=== PATIENT | male | born 1980 | race Caucasian/White ===

== ENCOUNTER 2021-11-16 15:34 | Emergency (ER) | payer BC, SELFPAY ==
[2021-11-16 15:38] VITALS: BP 169/102; PULSE 88; RESP 18; TEMP 36.2; O2SAT 99
[2021-11-16 15:58] VITALS: BP 177/66
[2021-11-16 18:04] VITALS: BP 180/99; PULSE 60; TEMP 36.3; O2SAT 100
--- NOTE | 2021-11-16 18:55 | ED.GENADUL_ITS ---
Discharge Plan Disposition Patient Disposition: HOME Condition: Stable Discharge Details Clinical Impression: Exposure to body fluid Primary Care Provider: Shanique Elliott ED Provider: Diana Molina Home Meds and New Rx's Prescriptions: No Action No Known Home Meds Discharge Instructions Instructions: Rabies Vaccine (By injection), Rabies Immune Globulin (By injection), Rabies (ED) Additional Instructions: You were given the rabies immunoglobulin and Day #0 of the rabies vaccine here in the emergency department today. Follow-up at the infusion center for day 3 on 11/19, day 7 on 11/23 and day 14 on 11/30 for the remainder of your rabies vaccine series. You can likely discontinue the rabies vaccine series if the rabies vaccine testing for the Delgado is negative for rabies. Follow-up with your primary care doctor in 1 week. Return to the emergency department with any worsening or new concerning symptoms. Discharge Data Discharge Date/Time-TO BE ENTERED AT DEPARTURE: 11/16/21 20:26 Discharge Physician: Diana Molina Medical Decision Making 41-year-old presents for concern for potential exposure to rabies. His dog may have had contact with an injured cough in his backyard. Patient states he had his dog who may have had saliva on him and then patient rubbed his own left eye 3 days ago. [employer] collected delgado but rabies testing still pending. Dog is vaccinated for rabies and has been acting appropriately. Patient has been asymptomatic. Discussed with patient at length regarding potential exposure to rabies and he would like to proceed with rabies immunoglobulin. Case discussed with pharmacy on-call who states that patient is still within the window to receive the immunoglobulin and vaccine. Immunoglobulin and day 0 vaccine ordered. Form completed for completion of vaccine at day 3 on 11/19, day 7 on 11/23 and day 14 on 11/30 for remainder of series to be completed at the infusion center. Patient informed that if the delgado rabies test is negative, pt can likely stop the rabies vaccine series. Advised to follow up with the primary care doctor for re-evaluation. Usual and customary return precautions given prior to discharge. Medical Records Medical records reviewed: Yes I reviewed the patient's medical records. HPI General Mode of arrival: ambulatory . Date/Time Provider Initiated Documentation: 11/16/21 15:47 . Limitations to Documentation: no limitations . Information obtained by: patient . HPI Narrative: Patient is a 41-year-old male who presents with concern for potential exposure to rabies. Patient states he recently put his dog who potentially had saliva on him and then patient rubbed his left eye 3 days ago. He states around this time he found an injury to proximal outside in his backyard and was concerned the dog may have had contact with the delgado. Patient states he is concerned that he may have had saliva from the delgado on the dog and then rubbed his eye. Patient states the dog is vaccinated for rabies and has been acting appropriately. Patient denies any symptoms. Patient states he is concerned as he is 72 hours out from exposure and is concerned about when he can receive the rabies immunoglobulin and vaccine if indicated. He states the [employer] dual rate supervisor was able to procure the Delgado for testing but this result is still pending. Related Data Home Medications Medication Instructions Recorded Confirmed Unknown [No Known Home Meds] 11/16/21 11/16/21 Allergies Allergy/AdvReac Type Severity Reaction Status Date / Time No Known Allergies Allergy Unverified 11/16/21 15:44 General Stated Complaint: GenMedical MEDARDO: 4 Review of Systems All systems reviewed & are unremarkable except as noted in HPI and below Constitutional Constitutional: Denies chills, Denies excessive sweating, Denies fatigue, Denies fever(s), Denies weakness and Denies weight loss Eyes Eyes: Reports system reviewed and no additional complaints, except as documented and Denies blurry vision ENT Ears, Nose, Mouth, and Throat: Denies vertigo, Denies dizziness, Denies otalgia, Denies nasal congestion, Denies sore throat and Denies throat swelling Cardiovascular Cardiovascular: Denies chest pain, Denies syncope, Denies rapid heart rate and Denies dyspnea Respiratory Respiratory: Denies chest congestion, Denies cough, Denies pain on inspiration and Denies dyspnea Gastrointestinal Gastrointestinal: Denies abdominal pain, Denies diarrhea and Denies vomiting Genitourinary Genitourinary: Denies hematuria, Denies dysuria and Denies flank pain Musculoskeletal Musculoskeletal: Denies back pain and Denies joint swelling Integumentary/Breasts Skin/Breast: Denies lesions and Denies rash Neurologic Neurologic: Denies behavioral changes, Denies confusion, Denies vertigo, Denies dizziness, Denies syncope, Denies localized weakness and Denies weakness Psychiatric Psychiatric: Denies behavioral changes, Denies confusion and Denies depression Endocrine Endocrine: Denies excessive sweating and Denies fatigue Hematologic/Lymphatic Hematologic/Lymphatic: Denies easy bruising and Denies lymphadenopathy Allergic/Immunologic Allergic/Immunologic: Denies throat swelling PFSH All Active Problems (Updated 11/16/21 @ 19:30 by Diana Molina DO) Exposure to body fluid (Acute) Medical History (Updated 11/16/21 @ 19:30 by Diana Molina DO) No significant past medical history Surgical History (Updated 09/01/16 @ 16:25 by Elie Arizmendi DO) Achilles tendon repair Social History Smoking/Tobacco Use Status: Never Smoking risk assessment performed?: Yes Alcohol Intake: current Alcohol Intake frequency: 0-2 drinks per day Alcohol type: beer Drug use: Never Substance use type: does not use Do you feel safe at home: Yes Do you feel safe in your relationship?: Yes Exam Const General: cooperative, healthy appearing and no acute distress Orientation: alert, awake and oriented x3 HENMT Head: normal to inspection Ears: hearing grossly normal bilaterally and external ears normal General nose exam: external nose normal Face and sinus: normal facial exam Eyes General: appearance normal, both eyes and all related structures Eyelids: eyelids normal EOM: EOM intact bilaterally Neck Neck: normal visual inspection Lymphatic: no lymphadenopathy noted Chest Chest: normal inspection of the chest Resp Effort & Inspection: normal respiratory effort and able to speak in complete sentences Cardio Rate: regular rate GI Inspection: normal to inspection Skin General skin exam: no rashes or lesions noted Neuro General: patient alert, patient awake, patient oriented x3, moves all extremities and no meningeal signs Cognition: normal cognition Speech: speech normal Gait: normal gait Extrem General: normal to inspection, full ROM and capillary refill normal Psych Appearance: grossly normal Mental Status: mental status grossly normal Speech and Movement: speech and movement normal Affect: normal affect Thought Process: normal Course Vital Signs Vital signs: Vital Signs Temperature 97.2 F L 11/16/21 15:38 Pulse 88 11/16/21 15:38 Respiratory Rate 18 11/16/21 15:38 Blood Pressure 169/102 H 11/16/21 15:38 Pulse Oximetry 99 11/16/21 15:38 Temperature 97.3 F L 11/16/21 18:04 Temperature Source Tympanic 11/16/21 18:04 Pulse 60 11/16/21 18:04 Respiratory Rate 18 11/16/21 15:38 Respiratory Effort Non-Labored 11/16/21 15:58 Respiratory Depth Normal 11/16/21 15:58 Respiratory Pattern Normal 11/16/21 15:58 Blood Pressure 180/99 H 11/16/21 18:04 Blood Pressure Position Sitting 11/16/21 15:38 Pulse Oximetry 100 11/16/21 18:04 Oxygen Delivery Method Room Air 11/16/21 18:04 Oxygen Flow Rate 0 11/16/21 18:04 Pain Level 0 11/16/21 18:04 PAWSS Have you Been Recently Intoxicated or Drunk Within the Last 30 days?: No Have you Ever Experienced Previous Episodes of Alcohol Withdrawal?: No Have you ever Experienced Withdrawal Seizures?: No Have you ever Experienced Delirium Tremens(DT)s?: No Have you ever undergone Alcohol Rehabilitation Treatment (i.e, inpt ot outpatient treatment programs)?: No Have you ever Experienced Blackouts?: No Have you ever Combined Alcohol with other Downers within the last 90 days?: No Have you ever Combined Alcohol with any other Substance of Abuse during the last 90 days?: No Result: 0
[2021-11-16 20:13] VITALS: BP 168/116; PULSE 64; TEMP 36.4; O2SAT 100
[2021-11-16] MEDS: Rabies Immune Globulin 1,500 UNIT/5 ML VIAL 1500 UNITS IM (20:20)
== END 2021-11-16 20:26 | disposition home or self-care (01) ==
PROVIDERS: Emergency Provider Physician Assistant
DX: Z77.21 Contact with and (suspected) exposure to potentially hazardous body fluids (principal); Z23 Encounter for immunization
CPT/HCPCS: 90471; 99281; 90675

== ENCOUNTER 2021-11-22 13:10 | Emergency (ER) | payer BC, SELFPAY ==
--- NOTE | 2021-11-22 13:15 | RT.EKG_ITS ---
APPROVED REPORT Exam: Resting ECG Reason for Exam: chest pain, Patient Location: E HR:68 bpm ECG Measurements Heart Rate 68 AXIS MA 154 P 60 QRSd 108 QRS 32 QT 399 T 42 QTc 424 Conclusion Sinus rhythm...normal P axis, V-rate 60- 99 Physician: no stemi, questionable u waves
[2021-11-22 13:16] VITALS: BP 143/90; PULSE 79; RESP 16; TEMP 36.8; O2SAT 99
--- NOTE | 2021-11-22 15:46 | W.ED.GENAD ---
Discharge Plan Disposition Patient Disposition: HOME Condition: Good Discharge Details Clinical Impression: Lightheadedness, Acute dehydration Primary Care Provider: Shanique Elliott ED Provider: Jaziel Pérez Home Meds and New Rx's Prescriptions: No Action No Known Home Meds Discharge Instructions Instructions: Dehydration (ED) Additional Instructions: At this time your symptoms appear to be consistent with dehydration. Please make sure you are drinking plenty of fluids, drink 10 to 12 cups of water per day. Your potassium may be slightly low as well. Please make sure that you are eating foods high in potassium for the next 1 to 2 weeks. This includes bananas, legumes, and avocados. If you notice any worsening of your symptoms, or any new symptoms such as vomiting, diarrhea, fever, chills, shortness of breath, chest pain, numbness, weakness, or fainting , please return immediately to the emergency department for reevaluation. Please follow up with your primary care provider as soon as possible for reassessment and reevaluation. As always, it was a pleasure participating in your medical care today. Referrals: Shanique Elliott MD [Primary Care Provider] - Discharge Data Discharge Date/Time-TO BE ENTERED AT DEPARTURE: 11/22/21 18:16 Medical Decision Making This is a pleasant 41-year-old male who presents today for tingling in his left arm with some associated pain there as well. Patient states that there was some questionable exposure to rabies a few days ago. He received his initial rabies vaccine and immunoglobulin, and has had 2 subsequent shots. He states that today a few hours ago he noticed some tingling in his left arm and shoulder, and some associated pain. This did bring about notable concern for the patient, he came to the ER for assessment. He denies any chest pain, fever, chills, headache, vomiting or diarrhea. He denies any syncope or near syncope. No other complaints at this time. Exam demonstrates a well-appearing male, no focal neurologic deficits. Arm exam demonstrates no tingling or numbness redness or signs of trauma. By the time the exam was completed, the patient states that his symptoms are completely resolved. He states he did feel slightly lightheaded at home, but this is resolved on its own without any intervention. He denies any other complaints and otherwise feels well. He states that he would like to go home. EKG was performed and demonstrates questionable small U wave. Otherwise intervals are normal. Patient may have slightly low potassium but we have recommended that he supplement with dietary modifications. At this time with the patient's symptoms completely resolved, no focal neurologic deficits, symptoms clinically inconsistent with stroke, symptoms inconsistent with active rabies, I do feel that he can be safely discharged home, especially in light of the patient feeling well. I did discuss the importance of prompt return if he has return or worsening of his symptoms. We discussed concerning red flags for which to return. I have extensively reviewed the treatment plan and discharge instructions with the patient and their family. I have addressed all patient concerns at this time. The patient and family was made aware of what symptoms to monitor for that would warrant a return to the emergency department. Discussed the plan with the patient and family, they demonstrate verbal understanding and agreement with our assessment and plan at this time. The documentation in this chart was dictated using [employer] dictation software. Please excuse any dictation errors. HPI General Date/Time Provider Initiated Documentation: 11/22/21 14:09. HPI Narrative: This is a pleasant 41-year-old male who presents today for tingling in his left arm with some associated pain there as well. Patient states that there was some questionable exposure to rabies a few days ago. He received his initial rabies vaccine and immunoglobulin, and has had 2 subsequent shots. He states that today a few hours ago he noticed some tingling in his left arm and shoulder, and some associated pain. This did bring about notable concern for the patient, he came to the ER for assessment. He denies any chest pain, fever, chills, headache, vomiting or diarrhea. He denies any syncope or near syncope. No other complaints at this time. Related Data Home Medications Medication Instructions Recorded Confirmed Unknown [No Known Home Meds] 11/16/21 11/16/21 Allergies Allergy/AdvReac Type Severity Reaction Status Date / Time No Known Allergies Allergy Unverified 11/16/21 15:44 General Stated Complaint: GenMedical MEDARDO: 3 Review of Systems All systems reviewed & are unremarkable except as noted in HPI and below PFSH All Active Problems (Updated 11/22/21 @ 15:48 by Jaziel Pérez DO) Exposure to body fluid (Acute) Lightheadedness (Acute) Acute dehydration (Acute) Medical History (Updated 11/22/21 @ 15:48 by Jaziel Pérez DO) No significant past medical history Surgical History (Updated 09/01/16 @ 16:25 by Elie Arizmendi DO) Achilles tendon repair Social History Smoking/Tobacco Use Status: Never Smoking risk assessment performed?: Yes Alcohol Intake: current Alcohol Intake frequency: 0-2 drinks per day Alcohol type: beer Drug use: Never Substance use type: does not use Do you feel safe at home: Yes Do you feel safe in your relationship?: Yes Exam Narrative Exam Narrative: 1.Const: Well-nourished, Well-developed, appearing stated age 2.Eyes: PERRL, no conjunctival injection, and symmetrical lids. 3.ENT: Atraumatic external nose and ears. Moist MM. Neck: Symmetric, trachea midline, No thyromegaly. 4.CVS: +S1/S2, No murmurs or gallops. Peripheral pulses 2+ and equal in all extremities. Brisk capillary refill in all extremities. 5.RESP: Unlabored respiratory effort. Clear to auscultation bilaterally. No wheezes rales or rhonchi 6.GI: Soft, Nontender/Nondistended, No hepatosplenomegaly. No guarding or rebound. 7.MSK: Normocephalic/Atraumatic, Extremities w/o deformity or ttp No cyanosis or clubbing, Normal movement of all extremities. Examination of the arm demonstrates no tenderness at this time. At time of examination patient states that symptoms have completely resolved. No redness or erythema at the shoulder where he received to shot. Normal strength throughout. Good two-point discrimination in all fingers. Brisk capillary refill. 8.Skin: Warm, Dry. No rashes or lesions. 9.Neuro: teaching assistant II-XII grossly intact. Sensation grossly intact, no focal neurologic deficits. All 6 cardinal planes of vision are fully intact. No evidence of rotatory or vertical nystagmus. The patient demonstrated a normal [id number], good dexterity. There was no evidence of dysdiadochokinesia. Patient was able to ambulate without difficulty. There was no wide-based gait. Romberg testing was normal. Aclu-ik-[id number] testing was normal. Sensation was intact bilaterally as well as muscle strength bilaterally for all extremities. Patient was able to verbalize butter cup with no slurring, or miss pronunciation. 10.Psych: (AAO) x3. Appropriate mood and affect Course Vital Signs Vital signs: Vital Signs Temperature 36.8 C 11/22/21 13:16 Pulse 79 11/22/21 13:16 Respiratory Rate 16 11/22/21 13:16 Blood Pressure 143/90 H 11/22/21 13:16 Pulse Oximetry 99 11/22/21 13:16 Temperature 36.8 C 11/22/21 13:16 Temperature Source Skin 11/22/21 13:16 Pulse 79 11/22/21 13:16 Respiratory Rate 16 11/22/21 13:16 Respiratory Effort 11/22/21 13:22 Blood Pressure 143/90 H 11/22/21 13:16 Blood Pressure Position Sitting 11/22/21 13:16 Pulse Oximetry 99 11/22/21 13:16 Oxygen Delivery Method Room Air 11/22/21 13:16 Oxygen Flow Rate 0 11/22/21 13:16 Pain Level 0 11/22/21 13:16 PAWSS Have you Been Recently Intoxicated or Drunk Within the Last 30 days?: Yes Have you Ever Experienced Previous Episodes of Alcohol Withdrawal?: No Have you ever Experienced Withdrawal Seizures?: No Have you ever Experienced Delirium Tremens(DT)s?: No Have you ever undergone Alcohol Rehabilitation Treatment (i.e, inpt ot outpatient treatment programs)?: No Have you ever Experienced Blackouts?: No Have you ever Combined Alcohol with other Downers within the last 90 days?: No Have you ever Combined Alcohol with any other Substance of Abuse during the last 90 days?: No Positive Blood Alcohol level on Presentation? [PCS.BAL]: No Evidence of Increased Autonomic Activity (i.e. HR>120, tremor, sweating, agitation, nausea)?: No Result: 1
== END 2021-11-22 18:16 | disposition home or self-care (01) ==
PROVIDERS: Emergency Provider Student in an Organized Health Care Education/Training Program
DX: E86.0 Dehydration (principal); R42 Dizziness and giddiness; R20.2 Paresthesia of skin; M79.602 Pain in left arm
CPT/HCPCS: 93005; 99283; 93010; 99282

== ENCOUNTER 2021-11-30 01:16 | Outpatient (RCR) | payer BC, SELFPAY | END 2021-12-10 23:59 | disposition home or self-care (01) | LOC: INF 01:16 | PROVIDERS: Visit Provider Physician Assistant | DX: Z20.3 Contact with and (suspected) exposure to rabies (principal) | CPT/HCPCS: 90471; 96372; 90675 ==

== ENCOUNTER 2023-09-28 16:08 | Outpatient (REF) | payer BC, SELFPAY ==
[2023-09-28 21:06] LABS: Abs Immature Grans 0.04 10^3/uL (0.0-0.06); Absolute Basophil Count 0.04 10^3/uL (0.0-0.2); Absolute Eosinophil Count 0.14 10^3/uL (0.0-0.7); Absolute Monocyte Count 0.74 10^3/uL (0.1-0.8); Absolute Neutrophil Count 5.61 10^3/uL (1.2-6.7); Basophils % 0.5 %; Eosinophils % 1.7 %; HCT 43.7 % (40.0-50.0); HGB 14.9 g/dL (13.5-17.5); Immature Grans % 0.5 %; Lymphocytes % 22.4 %; MCH 29.4 pg (27.0-33.0); MCHC 34.1 % (32.0-36.0); MCV 86 fL (80-95); MPV 11.5 fL (8.0-11.0); Monocytes % 8.7 %; Neutrophils % 66.2 %; Platelet Count 200 10^3/uL (130-400); RBC 5.07 10^6/uL (4.36-5.78); RDW 13.2 % (11.8-14.1); RDW-SD 40.8 fL; WBC 8.47 10^3/uL (4.4-10.8)
== END 2023-09-28 16:09 | disposition home or self-care (01) ==
LOC: LBN 16:08
PROVIDERS: Visit Provider Physician Assistant
DX: M54.2 Cervicalgia (principal); R13.19 Other dysphagia; R07.0 Pain in throat
CPT/HCPCS: 85025

== ENCOUNTER 2024-03-15 07:40 | Day surgery (SDC) | payer BC, SELFPAY ==
--- NOTE | 2024-03-14 08:38 | W.PM.DSUDISC ---
Date of service: 03/15/24 Discharge Plan Disposition Patient Disposition: Home Condition: Good Discharge Details Reason For Visit: screening colonoscopy Attending Provider: Donell Long Primary Care Provider: Bonilla Castanon Home Meds and New Rx's Prescriptions: Continued metronidazole 0.75 % cream 1 applic topical BID Discontinued bisacodyl [Dulcolax (bisacodyl)] 5 mg tablet,delayed release (DR/EC) 5 mg PO ONCE Qty: 4 0RF Rx Instructions: Take per colonoscopy instructions provided by ordering providers office polyethylene glycol 3350 17 gram/dose powder 17 g PO ONCE Qty: 238 0RF Rx Instructions: Take per colonoscopy instructions provided by ordering providers office Discharge Instructions Additional Instructions: Dada, was very nice meeting you today, and I hope you are comfortable during the procedure and that you make a quick recovery in the days to come. Everything went very smoothly. Your prep was excellent and I could see everything fine. Your colonoscopy is totally normal today. With a normal screening colonoscopy, I recommend a 10-year interval follow-up for your next colonoscopy. 1. If tolerated, consume a soft, low fiber diet for 1-2 days. [address] Do not drive, drink alcohol, operate machinery, make critical decisions, or do activities that require coordination or balance for 24 hours. 3. Because air was put into your colon during the procedure, expelling air from your rectum (passing gas or farting) is normal. 4. You may not have a bowel movement for 1-3 days because of the colonoscopy prep. This is normal. 5. Go directly to the emergency room if you notice any of the following: Develop chills (warm to touch), or if you have a thermometer and your temperature is above 101 Difficulty breathing or difficultly swallowing Persistent vomiting Severe abdominal pain, other than gas cramps Severe chest pain Black, tarry stools Any bleeding ? exceeding one tablespoon 6. Call your physician if the site where your intravenous was started becomes red, swollen, painful, and warm to touch. 7. Your physician has reviewed your pre-procedure medications. Please continue to take those medications as previously ordered. You will be given specific information/education regarding any changes to your medications before leaving. Stand Alone Forms: Anesthesia Discharge Vicente Borjas ([facility]) Activity:: Activity as Tolerated Diet:: As Tolerated Discharge Orders Discharge Orders: Discharge Order (Routine); Ordered 03/14/24 Ordered By: Donell Long DS: Diagnosis Discharge Diagnosis (1) Encounter for screening colonoscopy: Status: Acute Asessment and Plan: Negative screening colonoscopy; follow-up in 10 years
--- NOTE | 2024-03-14 08:41 | COLE_ITS ---
Date of service: 03/15/24 Time of Service: 09:28 Colonoscopy Report Date of procedure: 03/15/24 Pre-op diagnosis general: screening colonoscopy Post-op diagnosis procedure note: other (Negative screening colonoscopy) Procedure: colonoscopy Surgeon: Donell Long Anesthesia Type: General:No Airway Estimated blood loss (mL): 0 Pathology: none sent Complications: None Disposition: same day Indications: Giancarlo is a 43 year old man who needs a screening colonoscopy Prep: Miralax/Dulcolax Procedure Start Time: 09:05 Procedure End Time: 09:23 Retraction Time: 8 Findings: Normal screening colonoscopy Procedure Description: After the induction of anesthesia, and with the patient in left lateral decubitus position, I began by performing an external anorectal exam.? Perineum and skin were normal, as was the anal verge.? There was no evidence of external hemorrhoids.? Next, I performed a digital rectal exam.? I did not appreciate any abnormal findings.? Next, I advanced a colonoscope into the rectal vault.? I performed retroflexion.? This appeared normal.? Using insufflation, I then advanced the colonoscope beyond the rectal folds and into the sigmoid colon before advancing towards the cecum.? The quality of the prep was excellent.? The scope was noted to be in the cecum by identification of the ileocecal valve and appendiceal orifice.? I then began withdrawing the colonoscope using repeated irrigation as necessary for full evaluation of the colonic mucosa. ?Once the scope was withdrawn to the level of the rectum, great care was taken to examine portions of the rectal folds. I saw no signs of tumors, polyps, or any other pathology.? Finally, the scope was withdrawn and the patient was brought to the same-day surgery recovery unit as the anesthetic wore off. ?The findings and instructions were shared with the patient prior to discharge. [place] Bowel Prep [place] Bowel Prep Right Colon: 3 Left Colon: 3 Transverse Colon: 3 Total Score: 9
--- NOTE | 2024-03-14 18:34 | W.ANESPRE ---
General Info Date of Service Date Performed: 03/15/24 Height: 5 ft 7 in Weight: 76.657 kg Body Mass Index (BMI): 26.4 Surgical Procedure: Operation Date: 03/15/24 09:05 Proposed Procedure Side Surgeon p Colonoscopy Donell Long MD Meds Allergies and Home Medications Allergies Allergy/AdvReac Type Severity Reaction Status Date / Time No Known Allergies Allergy Verified 03/15/24 07:52 Home Medication ?Medication ?Instructions ?Recorded metronidazole 0.75 % topical cream 1 applic topical BID 02/16/24 Current Visit Medications: Current Medications Generic Name Dose Route Start Last Admin Trade Name Freq PRN Reason Stop Dose Admin IV Miscellaneous Supplies 1 each 03/15/24 06:00 Iv Access IV 03/15/24 23:59 DIRECTED ABDIFATAH Ondansetron HCl 4 mg 03/14/24 08:42 Ondansetron 4 Mg/2 Ml Vial IVP 04/13/24 08:41 Q4H PRN PRN Nausea / Vomiting Sodium Chloride 0 ml 03/15/24 06:00 Normal Saline Flush 10 Ml Syr IV 03/15/24 23:59 PRN PRN Sodium Chloride 0 ml 03/15/24 06:00 Normal Saline 10 Ml Vial IJ 03/15/24 23:59 DIRECTED PRN Sterile Water 0 ml 03/15/24 06:00 Water,Injection,Sterile 10 Ml Vial IJ 03/15/24 23:59 DIRECTED PRN PFSH Active Problems Active Problems: Problem Status Onset Code Encounter for screening colonoscopy Acute Z12.11 Medical History Medical History (Updated 03/14/24 @ 08:39 by Donell Long MD) Pain in right wrist Low back pain Neck pain Rosacea No significant past medical history Surgical History Surgical History Achilles tendon repair Tobacco Smoking/Tobacco Use Status: Never Alcohol Alcohol Intake: current Alcohol intake frequency: 0-2 drinks per day Alcohol type: beer Substance Use Substance use: Never Substance use type: does not use Vital Signs and Lab Results Vital Signs Most Recent Vital Signs in EMR: Temp Pulse Resp BP Pulse Ox 36.5 C 63 18 134/92 H 100 03/15/24 07:52 03/15/24 07:52 03/15/24 07:52 03/15/24 07:52 01/03/25 07:52 Lab Results Blood Type / Crossmatch: No Data to Display Complete Blood Count: No Data to Display Complete Metabolic Panel: No Data to Display Liver Function Panel: No Data to Display Coagulation Panel: No Data to Display Cardiac Panel: No Data to Display Arterial Blood Gas: No Data to Display Venous Blood Gas: No Data to Display Pancreas Panel: No Data to Display Thyroid Panel: No Data to Display Infectious Disease: No Data to Display Blood Cultures: No Data to Display Toxicology Panel: No Data to Display Anesthesia Assessment and Plan Anesthesia History Personal History: No History of Anesthesia Complications Family History: No Family History of Anesthesia Complications Exercise Tolerance Exercise Tolerance: Metabolic Equivalents>4 Cardiac & Pulmonary Exam Cardiac Exam: Normal S1/S2 Heart Sounds Pulmonary Exam: Clear Bilateral Breath Sounds Implantable Cardiac Device Does patient have a Pacemaker or an ICD?: No Airway Exam Known Difficult Airway: No Mallampati Class: 3 Mouth Opening: Normal (> 3cm) Thyromental Distance: Greater than 3 cm Neck Range of Motion: Full ROM Neck Circumference: Normal Teeth Condition: Normal Dentition ASA Classification ASA Score: ASA 2 Emergency Case?: No NPO Status NPO Status: NPO Clears >2 hours, Solids >8 hours Anesthesia Plan Resuscitation Status: Full Code Anesthesia Technique: General Anesthesia Airway Planned: Natural Airway Monitors Used: Standard Monitors Preoperative Comments:: 43 yo male for colo. Sig PMHx: LBP, never smoker, occ ETOH. EKG: sinus.
[2024-03-15 07:52] VITALS: BP 134/92; PULSE 63; RESP 18; TEMP 36.5; O2SAT 100
[2024-03-15] MEDS: Lactated Ringers 1,000 ML 80 ML IV (08:10)
[2024-03-15 08:12] VITALS: BMI 26.4
[2024-03-15 09:26] VITALS: BP 111/83; PULSE 70; RESP 16; TEMP 36.2; O2SAT 99
--- NOTE | 2024-03-15 09:33 | W.ANESPOSTOP ---
Postoperative Evaluation Date, Time and Location Date Performed: 03/15/24 Time Performed: 09:34 Patient Location: Day Surgery Unit Vital Signs Most Recent Imported Vital Signs: Most Recent Vital Signs Temp Pulse Resp BP Pulse Ox 36.2 C L 70 16 111/83 99 03/15/24 09:26 03/15/24 09:26 03/15/24 09:26 03/15/24 09:26 03/15/24 09:26 Pain Score Most Recent Pain Score: Most Recent Pain Score Pain Level 0 03/15/24 09:26 Assessment Mental Status: Awake (Alert & Oriented to Patient Baseline) Airway and Respiratory Function: Patent airway with normal (patient baseline) respiratory exam Cardiovascular Function: Hemodynamically Stable Hydration Status: Adequately Hydrated Nausea & Vomiting: No Nausea or Vomiting Pain: Pt. Denies Any Pain Peripheral Nerve Block: Patient did not receive a nerve block
[2024-03-15 09:49] VITALS: BP 124/86; PULSE 70; RESP 16; TEMP 35.8; O2SAT 98
== END 2024-03-15 09:56 | disposition home or self-care (01) ==
LOC: SUR 07:40
PROVIDERS: PCP Student in an Organized Health Care Education/Training Program; Visit Provider Surgery
PROC: 0DJD8ZZ Inspection of Lower Intestinal Tract, Via Natural or Artificial Opening Endoscopic (ICD-10-PCS; CPT 45378; principal; 2024-03-15 09:00)
DX: Z12.11 Encounter for screening for malignant neoplasm of colon (principal)
CPT/HCPCS: 45378; J2704

== ENCOUNTER 2024-09-25 18:41 | Outpatient (REF) | payer BC, SELFPAY ==
[2024-09-25 22:25] LABS: Calculated LDL 128 mg/dL (<100); Cholesterol 191 mg/dL (<200); HDL Cholesterol 48 mg/dL (>or=40); Triglyceride 77 mg/dL (<150)
[2024-09-25 23:15] LABS: Hemoglobin A1C 4.9 % (<5.7)
== END 2024-09-25 18:42 | disposition home or self-care (01) ==
LOC: NCHCN 18:41
PROVIDERS: PCP Student in an Organized Health Care Education/Training Program; Visit Provider Student in an Organized Health Care Education/Training Program
DX: Z13.220 Encounter for screening for lipoid disorders (principal); Z13.1 Encounter for screening for diabetes mellitus
CPT/HCPCS: 80061; 83036

== ENCOUNTER 2025-03-12 12:47 | Emergency (ER) | payer BC, SELFPAY ==
[2025-03-12 12:52] VITALS: BP 147/103; PULSE 117; RESP 20; TEMP 39; O2SAT 94
[2025-03-12 12:56] VITALS: BP 147/103; PULSE 117; RESP 20; TEMP 39; O2SAT 94
[2025-03-12 13:24] LABS: Glucose Negative (Negative)
[2025-03-12] MEDS: Lactated Ringers 1,000 ML 1000 ML IV (13:31)
[2025-03-12 13:34] LABS: Abs Immature Grans 0.09 10^3/uL (0.0-0.06); HCT 41.1 % (40.0-50.0); HGB 14.1 g/dL (13.5-17.5); Immature Grans % 0.6 %; MCH 28.5 pg (27.0-33.0); MCHC 34.3 % (32.0-36.0); MCV 83 fL (80-95); MPV 10.6 fL (8.0-11.0); RBC 4.94 10^6/uL (4.36-5.78); RDW 11.8 % (11.8-14.1); RDW-SD 35.8 fL; WBC 13.96 10^3/uL (4.4-10.8)
[2025-03-12 13:40] LABS: C & S Indicated? No; WBC 0-2 HPF (0-5)
[2025-03-12 14:00] LABS: ALT 19 U/L (10-49); AST 20 U/L (<34); Albumin 4.5 g/dL (3.2-5.0); Alkaline Phosphatase 74 U/L (46-116); Anion Gap 10.6 mmol/L (3-11); BUN 13 mg/dL (9-23); Bilirubin, Total 0.5 mg/dL (0.2-1.2); CO2 21.9 mmol/L (20.0-31.0); Calcium 8.7 mg/dL (8.3-10.6); Chloride 98 mmol/L (98-107); Glucose 125 mg/dL (74-106); Potassium 3.8 mmol/L (3.5-5.1); Sodium 131 mmol/L (136-145); Total Protein 8.0 g/dL (5.7-8.2)
[2025-03-12 14:11] LABS: Platelet Count 187 10^3/uL (130-400)
[2025-03-12 14:12] LABS: RBC Morphology Normal
--- NOTE | 2025-03-12 14:31 | W.ED.GENAD ---
Discharge Plan Disposition Patient Disposition: Home Condition: Stable Discharge Details Clinical Impression: Fever, Headache Primary Care Provider: Bonilla Castanon ED Provider: Law Shepherd Home Meds and New Rx's Prescriptions: No Action No Known Home Meds Discharge Instructions Instructions: Fever, Adult ED Additional Instructions: Please drink plenty of clear fluid like water or juice to stay hydrated. Good indicator of fluid hydration is regularly having to urinate clear urine. Please take ibuprofen 600 mg by mouth every 6-8 hours as needed for fever for the next few days. Please take tylenol (acetaminophen) 650 mg every 6 hours as needed for fever. Be sure to avoid any other medications that containe tylenol (acetaminophen). Please follow-up with your primary care physician tomorrow. You should be reassessed in person tomorrow or Monday at the latest by your primary care physician. Lab studies including a tick panel and blood cultures are pending at time of discharge. Please be sure to discuss his results with your doctor. Return to the emergency department immediately for any worsening or new concerning symptoms. Stand Alone Forms: Portal Information Referrals: Bonilla Castanon [Primary Care Provider, Medicine] Discharge Data Discharge Date/Time-TO BE ENTERED AT DEPARTURE: 03/12/25 16:14 HPI General Mode of arrival: ambulatory. Date/Time Provider Initiated Documentation: 03/12/25 13:01. Limitations to Documentation: no limitations. Information obtained by: patient. HPI Narrative: HISTORY OF PRESENT ILLNESS 44-year-old male with recent travel to [place] presenting with fever and headache. Accompanied by . Persistent fever for 5 days, sought urgent care, advised ER visit if fever persisted. Negative for COVID-19 and influenza. Referred for further evaluation due to travel history and warm water exposure. No gastrointestinal symptoms, no respiratory symptoms or tick bites. Took 500 mg Tylenol at 1230 hours, no ibuprofen today. Constant headache with pressure sensation frontal head, unresponsive to analgesics. No neck pain or stiffness. No rhinorrhea, cough, dysuria, rash, or neck pain. No rash. Related Data Home Medications ?Medication ?Instructions ?Recorded ?Confirmed Unknown [No Known Home Meds] 03/12/25 03/12/25 Allergies Allergy/AdvReac Type Severity Reaction Status Date / Time No Known Allergies Allergy Verified 03/12/25 12:57 General Stated Complaint: Fever MEDARDO: 3 Review of Systems All systems reviewed & are unremarkable except as noted in HPI and below Constitutional Constitutional: Reports as per HPI, Reports fever(s) and Denies weakness Eyes Eyes: Denies loss of vision ENT Ears, Nose, Mouth, and Throat: Denies dizziness Respiratory Respiratory: Reports as per HPI Musculoskeletal Musculoskeletal: Denies numbness Neurologic Neurologic: Reports as per HPI, Denies dizziness, Denies loss of vision, Denies numbness, Denies sensory deficit and Denies weakness Exam Const General: cooperative and no acute distress [facility] Head: normocephalic Mouth: moist mucous membranes Eyes Conjunctivae: normal conjunctivae Sclera: normal sclerae Neck Neck: full ROM and no meningeal signs Resp Auscultation: clear to auscultation bilaterally, no rales, no rhonchi and no wheezes Cardio Rate: tachycardic Rhythm: regular rhythm Heart Sounds: S1 normal, S2 normal and no murmurs GI Palpation: soft, not firm, no guarding, no masses, not rigid and nontender Skin General skin exam: no rashes or lesions noted Neuro General: patient alert, patient awake, patient oriented x3 and tone normal Extrem General: no edema Psych Appearance: grossly normal Mental Status: mental status grossly normal Course Vital Signs Vital signs: Vital Signs Temperature 39.0 C H 03/12/25 12:52 Pulse 117 H 03/12/25 12:52 Respiratory Rate 20 03/12/25 12:52 Blood Pressure 147/103 H 03/12/25 12:52 Pulse Oximetry 94 03/12/25 12:52 Temperature 39.0 C H 03/12/25 12:56 Pulse 117 H 03/12/25 12:56 Respiratory Rate 20 03/12/25 12:56 Blood Pressure 147/103 H 03/12/25 12:56 Blood Pressure Position Sitting 03/12/25 12:56 Pulse Oximetry 94 03/12/25 12:56 Oxygen Delivery Method Room Air 03/12/25 12:56 Oxygen Flow Rate 0 03/12/25 12:56 Lab/Test Results Lab/Test Results: 03/12/25 13:43 Blood Blood Culture - Pending 03/12/25 13:22 Blood Blood Culture - Pending Laboratory Tests Range/Units 03/12/25 03/12/25 13:13 13:22 WBC (4.4-10.8) 10^3/uL 13.96 H RBC (4.36-5.78) 10^6/uL 4.94 Hgb (13.5-17.5) g/dL 14.1 Hct (40.0-50.0) % 41.1 MCV (80-95) fL 83 MCH (27.0-33.0) pg 28.5 MCHC (32.0-36.0) % 34.3 RDW (11.8-14.1) % 11.8 Plt Count (130-400) 10^3/uL 187 MPV (8.0-11.0) fL 10.6 Immature Gran % % 0.6 Neutrophils % % 76.9 Lymphocytes % % 5.9 Monocytes % % 12.8 Eosinophils % % 3.4 Basophils % % 0.4 Nucleated RBC % (0.0-0.3) % 0.0 Absolute Neutrophils (1.2-6.7) 10^3/uL 10.74 H Absolute Lymphocytes (1.2-3.4) 10^3/uL 0.82 L Absolute Monocytes (0.1-0.8) 10^3/uL 1.79 H Absolute Eosinophils (0.0-0.7) 10^3/uL 0.47 Absolute Basophils (0.0-0.2) 10^3/uL 0.06 RBC Morphology Normal VBG Lactate (<or=2.0) mmol/L 1.1 Sodium (136-145) mmol/L 131 L Potassium (3.5-5.1) mmol/L 3.8 Chloride (98-107) mmol/L 98 Carbon Dioxide (20.0-31.0) mmol/L 21.9 Anion Gap (3-11) mmol/L 10.6 BUN (9-23) mg/dL 13 Creatinine (0.73-1.18) mg/dL 1.03 Est GFR (CKD-EPI 2020) (mL/min/1.73m2) 77.54 Glucose (74-106) mg/dL 125 H Calcium (8.3-10.6) mg/dL 8.7 Total Bilirubin (0.2-1.2) mg/dL 0.5 AST (<34) U/L 20 ALT (10-49) U/L 19 Alkaline Phosphatase (46-116) U/L 74 Total Protein (5.7-8.2) g/dL 8.0 Albumin (3.2-5.0) g/dL 4.5 Urine Color (Yellow) Yellow Urine Clarity (Clear) Clear Urine pH (5-8) 5.5 Ur Specific [place] (1.005-1.025) 1.015 Urine Protein (Neg-Trace) mg/dL 100 H Urine Ketones (Negative) mg/dL Trace H Urine Blood (Negative) Trace-intact H Urine Nitrite (Negative) Negative Urine Bilirubin (Negative) Negative Urine Urobilinogen (Up to 0.2) mg/dL 1.0 H Ur Leukocyte Esterase (Negative) Negative Urine RBC (0-2) HPF 3-5 H Urine WBC (0-5) HPF 0-2 Ur Epithelial Cells (Negative) HPF Rare Urine Crystals (Negative) HPF Negative Urine Bacteria (Negative) HPF Moderate Urine Casts (Negative) LPF Negative Urine Mucus (Negative) Moderate Ur Culture Indicated? No Urine Glucose (Negative) mg/dL Negative Procedure Lumbar Puncture Date of Procedure: 03/12/25 Time of procedure: 14:00 Provider that performed the procedure: Law Shepherd Indication: Diagnostic Patient Consented: Verbally and Written Standard Time Out Performed: Yes Sterility: Sterile Local anesthetic: Lidocaine 1% Amount of local anesthetic used(mL): 5 Spinal Needle Type: Other ([place] 20g) Needle Length: 3.5 inch Lumbar Puncture Procedure: Site Prepped, Sterile Drape Placed, 1% Lidocaine to skin and subcutaneous tissue with 25G needle, Spinal Needle Placed, Positive CSF Flow, CSF Specimen placed into Tubes in Sequential Order and Specimen Labeled, Sent to Lab Patient Position: Sitting Number of Attempts(see previous attempts in note section): 1 Paresthesia: None Ultrasound: Not used Dressing: Other (bandaid) Procedure Tolerated: No Complications Procedure Outcome: Successful Procedure Description/Note: 6mL csf removed Medical Decision Making ASSESSMENT AND PLAN 44-year-old male with fever and headache for 5 days. Negative for COVID and flu. Recent travel to [place] with warm water exposure. No GI symptoms. No known mosquito bites preceding symptoms. No known tick bites. Differential Diagnosis: - Meningitis: Persistent headache, fever. Lumbar puncture to rule out. - Viral infection: Negative COVID and flu tests. Consider if lumbar puncture normal. - Tick-borne diseases: Recent mosquito bites. Tick panel to be sent. - Consider other viral illness - Consider occult bacterial infection ED Course: - Blood cultures sent - IV fluids administered - Toradol IV for fever management and pain - 238p lumbar puncture was performed out complication after verbal and written informed consent - Labs reviewed: LP not consistent with acute bacterial infection. - Patient reassessed after IV fluid bolus and Toradol and feeling much better. Vitals reassessed and normalized. All results were discussed with the patient. Plan for discharge with close outpatient follow-up. Usual and customary discharge instructions reviewed and I stressed the importance of returning immediately for any worsening or new concerning symptoms. We reviewed need to treat with Tylenol and ibuprofen over the next few days and stay well-hydrated. Patient stable at time of discharge. Patient understands blood culture and tick panel pending at time of discharge. Clinical Impression: - Fever - Headache Patient Education: This document was written with the assistance of [employer]. The patient consented to its use. PFSH All Active Problems Headache (Acute) Fever (Acute) Encounter for screening colonoscopy (Acute) Medical History Pain in right wrist Low back pain Neck pain Rosacea No significant past medical history Surgical History History of colonoscopy (~03/2024) Achilles tendon repair Social History Smoking/Tobacco Use Status: Never Smoking risk assessment performed?: Yes Alcohol Intake: current Alcohol Intake frequency: 0-2 drinks per day Alcohol type: beer Drug use: Never Substance use type: does not use Housing: house Do you feel safe at home: Yes Do you feel safe in your relationship?: Yes PAWSS Have you Been Recently Intoxicated or Drunk Within the Last 30 days?: No Have you Ever Experienced Previous Episodes of Alcohol Withdrawal?: No Have you ever Experienced Withdrawal Seizures?: No Have you ever Experienced Delirium Tremens(DT)s?: No Have you ever undergone Alcohol Rehabilitation Treatment (i.e, inpt ot outpatient treatment programs)?: No Have you ever Experienced Blackouts?: No Have you ever Combined Alcohol with other Downers within the last 90 days?: No Have you ever Combined Alcohol with any other Substance of Abuse during the last 90 days?: No Positive Blood Alcohol level on Presentation? [PCS.BAL]: No Evidence of Increased Autonomic Activity (i.e. HR>120, tremor, sweating, agitation, nausea)?: No Result: 0
[2025-03-12] MEDS: Ketorolac 15 MG/ML VIAL IVP (14:40)
[2025-03-12 14:59] LABS: Total Protein (CSF) 17 mg/dL (15-45)
[2025-03-12 15:02] LABS: Glucose (CSF) 88 mg/dL (40-70)
[2025-03-12 15:13] LABS: RBC 1 /mm3 (0-5); WBC 0 /uL (0-5); Xanthochromia Absent
[2025-03-12 15:24] VITALS: BP 127/80; PULSE 83; RESP 12; TEMP 37.3; O2SAT 96
[2025-03-12 16:10] VITALS: BP 148/97; PULSE 80; TEMP 36.7; O2SAT 95
[2025-03-13 11:12] LABS: Lyme Ab w Rflx to Lyme Confirm Negative (Negative)
[2025-03-15 18:45] LABS: B. miyamotoi PCR Negative (Negative); Babesia divergens/MO-1 Negative (Negative); Ehrlichia muris eauclairensis Negative (Negative)
== END 2025-03-12 16:14 | disposition home or self-care (01) ==
PROVIDERS: Emergency Provider Student in an Organized Health Care Education/Training Program; PCP Student in an Organized Health Care Education/Training Program
DX: R51.9 Headache, unspecified (principal); R50.9 Fever, unspecified
CPT/HCPCS: 36415; 62270; 80053; 82945; 87040; 87798; 89050; 89051; 96361; 96374; 99284; 81003; 81015; 83605; 84157; 85025; 86618; 87070; 87205; J1885